=== PATIENT | male | born 1940 | race Caucasian/White ===

== ENCOUNTER 2017-05-03 14:18 | Emergency (ER) | payer OTHER, BC ==
[~2017-05-03] VITALS: Ht 177.8 cm; Wt 74.9 kg
[~2017-05-03 14:18] MED LIST: ATORVASTATIN CA80 MG PO; CELEXA10 MG PO; CIPRO500 MG PO; DOCUSATE SODIU100 MG PO; DONEPEZIL HCL5 MG PO; FLAGYL500 MG PO; GLIPIZIDE ER2.5 MG PO; GLUCOPHAGE1000 MG PO; GLUCOTROL XL2.5 MG PO; HALDOL2 MG PO; HALOPERIDOL2 MG PO; KEFLEX500 MG PO; LIPITOR80 MG PO; LISINOPRIL10 MG PO; LORAZEPAM0.5 MG PO; LORAZEPAM1 MG PO; METFORMIN HCL1000 MG PO; PAROXETINE HCL10 MG PO; RAMIPRIL2.5 MG PO; SENNA8.6 MG PO; SEROQUEL100 MG PO; SEROQUEL12.5 MG PO; TEGRETOL200 MG PO; TRAZODONE HCL100 MG PO; TRAZODONE HCL50 MG PO; TUSSIN100 MG/5 M PO; TYLENOL ARTHRI650 MG PO; TYLENOL REGULA325 MG PO
[2017-05-03 16:03] LABS: HEMATOCRIT 38.8 % (38.0-50.0); MCH 28.8 PG (29.0-34.0); MCHC 31.7 G/DL (30.0-36.0); MCV 90.9 FL (86-99); RBC DIS.WIDTH-CV 14.6 % (11.8-14.6); RBC DIS.WIDTH-SD 48.4 % (39-53); RED BLOOD COUNT 4.27 M/uL (4.00-5.50); WHITE BLOOD COUNT 13.9 K/uL (4.1-10.2)
[2017-05-03 16:15] LABS: CHLORIDE 112 mEq/L (99-109); POTASSIUM 3.7 mEq/L (3.7-5.4); SODIUM 144 mEq/L (136-147)
[2017-05-03 16:17] LABS: GLUCOSE 126 mg/dL (70-99)
[2017-05-03 16:18] LABS: ANION GAP 13 MEQ/L (2-14)
[2017-05-03 16:19] LABS: TOTAL BILIRUBIN 0.3 mg/dL (0.0-1.0)
[2017-05-03 16:21] LABS: ALKALINE PHOSPHATASE 111 IU/L (3-129); GFR ESTIMATE (CALCULATED) 42 mL/min/
[2017-05-03 16:22] LABS: UREA NITROGEN (BUN) 58 mg/dL (9-23)
[2017-05-03 16:30] LABS: ADD MIUA? YES; BILIRUBIN NEGATIVE; BLOOD MODERATE; COLOR STRAW ((YELLOW)); GLUCOSE (STRIP) NEGATIVE; KETONES NEGATIVE; LEUKOCYTES SMALL; NITRITE NEGATIVE; PROTEIN (STRIP) 30; SPECIFIC GRAVITY 1.013 (1.000-1.030); UROBILINOGEN 0.2 MG/DL (0.2-1.0)
[2017-05-03 16:35] LABS: BACTERIA NONE SEEN /HPF; EPITHELIAL CELLS RARE /HPF; MUCUS TRACE /LPF; RED BLOOD CELLS 20-30 /HPF (0-5); UCUL ADDED? YES; WHITE BLOOD CELLS 20-30 /HPF (0-5)
[2017-05-03 16:59] LABS: MEAN PLAT.VOLUME 11.4 uM^3 (9.0-12.4); PLAT.SUFFICIENCY ADEQUATE; PLATELET COUNT 156 K/uL (156-360)
[2017-05-03] MEDS ORDERED: CEFDINIR300 MG PO (18:24)
[2017-05-03 19:47] VITALS: BP 123/74
[2017-05-04] MEDS ORDERED: ERGOCALCIF50000 UNIT PO (20:57)
[2017-05-04] MEDS ORDERED: CYANOCOBALAM1000 MCG PO (20:58)
[2017-05-04] MEDS ORDERED: METFORMIN HCL500 MG PO (20:59)
[2017-05-04] MEDS ORDERED: TYLENOL ARTHRI650 MG PO (21:00)
[2017-05-04] MEDS ORDERED: SEROQUEL12.5 MG PO (21:01)
[2017-05-04] MEDS ORDERED: TRAMADOL HCL50 MG PO (21:02)
[2017-05-04] MEDS ORDERED: DEPAKOTE250 MG PO (21:03)
[2017-05-04] MEDS ORDERED: LOPERAMIDE2 MG PO (21:07)
[2017-05-04] MEDS ORDERED: BIOFREEZE (21:09)
[2017-05-04] MEDS ORDERED: CALMOSEPTINE O120 GM TP (21:11)
== END 2017-05-03 19:47 | disposition home or self-care (01) ==
LOC: EME 14:18
PROVIDERS: Emergency Medicine
DX: S00.83XA Contusion of other part of head, initial encounter (principal); W19.XXXA Unspecified fall, initial encounter; N39.0 Urinary tract infection, site not specified; R33.9 Retention of urine, unspecified; F03.90 Unspecified dementia, unspecified severity, without behavioral disturbance, psychotic disturbance, mood disturbance, and anxiety; N28.9 Disorder of kidney and ureter, unspecified; I10 Essential (primary) hypertension; E78.5 Hyperlipidemia, unspecified; E11.9 Type 2 diabetes mellitus without complications; Z79.84 Long term (current) use of oral hypoglycemic drugs; Z96.642 Presence of left artificial hip joint; Z87.891 Personal history of nicotine dependence
CPT/HCPCS: 70450; 80053; 81003; 85027; 87086; 99281; 99284; J0696; J7030; J7050

== ENCOUNTER 2017-05-04 15:21 | Inpatient (IN) | payer OTHER, BC ==
[~2017-05-04] VITALS: Ht 182.9 cm; Wt 79.4 kg
[~2017-05-04 15:21] MED LIST changes: +CEFDINIR300 MG PO
[2017-05-04 16:13] LABS: HEMATOCRIT 38.3 % (38.0-50.0); MCH 28.9 PG (29.0-34.0); MCHC 32.4 G/DL (30.0-36.0); MCV 89.3 FL (86-99); MEAN PLAT.VOLUME 10.7 uM^3 (9.0-12.4); PLATELET COUNT 190 K/uL (156-360); RBC DIS.WIDTH-CV 14.4 % (11.8-14.6); RBC DIS.WIDTH-SD 46.6 % (39-53); RED BLOOD COUNT 4.29 M/uL (4.00-5.50); WHITE BLOOD COUNT 13.5 K/uL (4.1-10.2)
[2017-05-04 16:23] LABS: CHLORIDE 112 mEq/L (99-109); POTASSIUM 3.5 mEq/L (3.7-5.4); SODIUM 144 mEq/L (136-147)
[2017-05-04 16:24] LABS: GLUCOSE 152 mg/dL (70-99)
[2017-05-04 16:26] LABS: ANION GAP 11 MEQ/L (2-14)
[2017-05-04 16:28] LABS: GFR ESTIMATE (CALCULATED) 42 mL/min/
[2017-05-04 16:29] LABS: UREA NITROGEN (BUN) 52 mg/dL (9-23)
[2017-05-04 16:35] LABS: TROP-I INTERPRETATION NEGATIVE; TROPONIN-I 0.03 ng/mL (0.0-0.30)
[2017-05-04 17:02] LABS: ADD MIUA? YES; BILIRUBIN NEGATIVE; BLOOD MODERATE; COLOR YELLOW ((YELLOW)); GLUCOSE (STRIP) NEGATIVE; KETONES NEGATIVE; LEUKOCYTES NEGATIVE; NITRITE NEGATIVE; PROTEIN (STRIP) NEGATIVE; SPECIFIC GRAVITY 1.015 (1.000-1.030); UROBILINOGEN 0.2 MG/DL (0.2-1.0)
[2017-05-04 17:16] LABS: BACTERIA RARE /HPF; EPITHELIAL CELLS NONE SEEN /HPF; MUCUS TRACE /LPF; RED BLOOD CELLS 30-40 /HPF (0-5); UCUL ADDED? NO; WHITE BLOOD CELLS 0-5 /HPF (0-5); WHITE BLOOD CELLS CLUMP RARE /HPF (0-5)
[2017-05-04] MEDS ORDERED: ERGOCALCIF50000 UNIT PO (20:57)
[2017-05-04] MEDS ORDERED: CYANOCOBALAM1000 MCG PO (20:58)
[2017-05-04] MEDS ORDERED: METFORMIN HCL500 MG PO (20:59)
[2017-05-04] MEDS ORDERED: TYLENOL ARTHRI650 MG PO (21:00)
[2017-05-04] MEDS ORDERED: SEROQUEL12.5 MG PO (21:01)
[2017-05-04] MEDS ORDERED: TRAMADOL HCL50 MG PO (21:02)
[2017-05-04] MEDS ORDERED: DEPAKOTE250 MG PO (21:03)
[2017-05-04] MEDS ORDERED: LOPERAMIDE2 MG PO (21:07)
[2017-05-04] MEDS ORDERED: BIOFREEZE (21:09)
[2017-05-04] MEDS ORDERED: CALMOSEPTINE O120 GM TP (21:11)
[2017-05-04 21:19] LABS: Estimated Average Glucose 143 mg/dL (70-123); HEMOGLOBIN A1c (GLYCOHEMOGLOB) 6.6 % HGB (Below 5.7)
[2017-05-04 22:07] VITALS: BP 126/59
[2017-05-04 23:03] LABS: POINT-OF-CARE METER ID UU14117124
[2017-05-05 03:33] VITALS: BP 106/62
[2017-05-05 06:39] LABS: POINT-OF-CARE METER ID UU14188577
[2017-05-05 07:04] LABS: HEMATOCRIT 29.9 % (38.0-50.0); MCH 29.9 PG (29.0-34.0); MCHC 32.8 G/DL (30.0-36.0); MCV 91.2 FL (86-99); MEAN PLAT.VOLUME 11.4 uM^3 (9.0-12.4); PLATELET COUNT 167 K/uL (156-360); RBC DIS.WIDTH-CV 14.5 % (11.8-14.6); RBC DIS.WIDTH-SD 48.3 % (39-53); WHITE BLOOD COUNT 8.7 K/uL (4.1-10.2)
[2017-05-05 07:07] LABS: ANION GAP 10 MEQ/L (2-14); CHLORIDE 114 MEQ/L (99-109); GFR ESTIMATE (CALCULATED) > 59 mL/min/; POTASSIUM 3.3 MEQ/L (3.7-5.4); SAMPLE HEMOLYSIS CHECK 0; SAMPLE ICTERIC CHECK 0; SAMPLE LIPEMIA CHECK 0; SODIUM 148 MEQ/L (136-147); UREA NITROGEN (BUN) 37 mg/dL (9-23)
[2017-05-05 07:13] LABS: GLUCOSE 100 mg/dL (70-99)
[2017-05-05 07:28] LABS: RED BLOOD COUNT 3.28 M/uL (4.00-5.50)
[2017-05-05 07:39] VITALS: BP 106/76
[2017-05-05 12:00] LABS: POINT-OF-CARE METER ID UU14188577
[2017-05-05 16:55] VITALS: BP 138/63
[2017-05-05 17:04] LABS: POINT-OF-CARE METER ID UU14208753
[2017-05-05 22:12] LABS: POINT-OF-CARE METER ID UU14117124
[2017-05-05 23:17] VITALS: BP 124/59
[2017-05-06 06:49] LABS: HEMATOCRIT 31.8 % (38.0-50.0); MCH 29.6 PG (29.0-34.0); MCHC 32.4 G/DL (30.0-36.0); MCV 91.4 FL (86-99); PLATELET COUNT 147 K/uL (156-360); RBC DIS.WIDTH-CV 14.3 % (11.8-14.6); RBC DIS.WIDTH-SD 47.8 % (39-53); RED BLOOD COUNT 3.48 M/uL (4.00-5.50); WHITE BLOOD COUNT 7.3 K/uL (4.1-10.2)
[2017-05-06 06:52] LABS: POINT-OF-CARE METER ID UU14188577
[2017-05-06 07:39] LABS: ANION GAP 8 MEQ/L (2-14); CHLORIDE 108 MEQ/L (99-109); GFR ESTIMATE (CALCULATED) > 59 mL/min/; GLUCOSE 98 mg/dL (70-99); POTASSIUM 3.8 MEQ/L (3.7-5.4); SAMPLE HEMOLYSIS CHECK 0; SAMPLE ICTERIC CHECK 0; SAMPLE LIPEMIA CHECK 0; UREA NITROGEN (BUN) 26 mg/dL (9-23)
[2017-05-06 07:40] LABS: SODIUM 139 MEQ/L (136-147)
[2017-05-06 07:43] VITALS: BP 129/60
[2017-05-06 11:43] LABS: POINT-OF-CARE METER ID UU14117124
[2017-05-06 16:44] LABS: POINT-OF-CARE METER ID UU14208753
[2017-05-06 17:33] LABS: ADD MIUA? YES; BILIRUBIN NEGATIVE; BLOOD SMALL; COLOR YELLOW ((YELLOW)); GLUCOSE (STRIP) NEGATIVE; KETONES NEGATIVE; LEUKOCYTES SMALL; NITRITE NEGATIVE; PROTEIN (STRIP) NEGATIVE; SPECIFIC GRAVITY 1.008 (1.000-1.030); UROBILINOGEN 0.2 MG/DL (0.2-1.0)
[2017-05-06 17:52] LABS: BACTERIA RARE /HPF; EPITHELIAL CELLS RARE /HPF; MUCUS TRACE /LPF; RED BLOOD CELLS 0-5 /HPF (0-5); UCUL ADDED? YES; WHITE BLOOD CELLS CLUMP RARE /HPF (0-5)
[2017-05-07 00:16] VITALS: BP 162/93
[2017-05-07 07:30] VITALS: BP 140/66
[2017-05-07 09:26] LABS: HEMATOCRIT 32.9 % (38.0-50.0); MCH 30.2 PG (29.0-34.0); MCV 88.7 FL (86-99); MEAN PLAT.VOLUME 10.8 uM^3 (9.0-12.4); PLATELET COUNT 175 K/uL (156-360); RBC DIS.WIDTH-CV 13.9 % (11.8-14.6); RBC DIS.WIDTH-SD 44.7 % (39-53); RED BLOOD COUNT 3.71 M/uL (4.00-5.50)
[2017-05-07 09:50] LABS: ANION GAP 7 MEQ/L (2-14); CHLORIDE 106 MEQ/L (99-109); GFR ESTIMATE (CALCULATED) > 59 mL/min/; GLUCOSE 181 mg/dL (70-99); POTASSIUM 4.1 MEQ/L (3.7-5.4); SAMPLE HEMOLYSIS CHECK 0; SAMPLE ICTERIC CHECK 0; SAMPLE LIPEMIA CHECK 0; SODIUM 140 MEQ/L (136-147); UREA NITROGEN (BUN) 17 mg/dL (9-23)
[2017-05-07 11:32] LABS: POINT-OF-CARE METER ID UU14208753
[2017-05-07 22:03] LABS: POINT-OF-CARE METER ID UU14208753
[2017-05-08 00:13] VITALS: BP 141/93
[2017-05-08 06:53] LABS: POINT-OF-CARE METER ID UU14208753
[2017-05-08 08:06] VITALS: BP 161/96
[2017-05-08 11:34] LABS: POINT-OF-CARE METER ID UU14117124
[2017-05-08 15:41] VITALS: BP 176/77
[2017-05-08 16:50] LABS: POINT-OF-CARE METER ID UU14208753
[2017-05-08 21:26] LABS: POINT-OF-CARE METER ID UU14117124
[2017-05-08 23:50] VITALS: BP 110/57
[2017-05-09 05:57] LABS: POINT-OF-CARE METER ID UU14188577
[2017-05-09 08:16] VITALS: BP 171/73
[2017-05-09 11:33] LABS: POINT-OF-CARE METER ID UU14188577
[2017-05-09 15:27] VITALS: BP 141/63
[2017-05-09 16:31] LABS: POINT-OF-CARE METER ID UU14188577
[2017-05-09 21:24] LABS: POINT-OF-CARE METER ID UU14188577
[2017-05-09 23:04] VITALS: BP 181/79
[2017-05-10 06:21] LABS: POINT-OF-CARE METER ID UU14188577
[2017-05-10 08:00] VITALS: BP 122/77
[2017-05-10 11:24] LABS: POINT-OF-CARE METER ID UU14188577
[2017-05-10 16:38] VITALS: BP 171/71
[2017-05-10 17:11] LABS: POINT-OF-CARE METER ID UU14188577
[2017-05-10 21:10] LABS: POINT-OF-CARE METER ID UU14117124
[2017-05-10 23:13] VITALS: BP 171/88
[2017-05-11 08:04] VITALS: BP 137/63
[2017-05-11 15:08] VITALS: BP 142/62
[2017-05-11 16:06] LABS: POINT-OF-CARE METER ID UU14117124
[2017-05-12 00:03] VITALS: BP 147/76
[2017-05-12 06:18] LABS: POINT-OF-CARE METER ID UU14188577
[2017-05-12 08:00] VITALS: BP 147/70
[2017-05-12 16:33] VITALS: BP 135/62
[2017-05-12 17:25] LABS: POINT-OF-CARE METER ID UU14117124
[2017-05-12 23:33] VITALS: BP 184/80
[2017-05-13 08:02] VITALS: BP 119/67
[2017-05-13 16:00] VITALS: BP 145/98
[2017-05-13 21:27] LABS: POINT-OF-CARE METER ID UU14208753
[2017-05-13 23:33] VITALS: BP 114/54
[2017-05-14 06:41] LABS: POINT-OF-CARE METER ID UU14117124
[2017-05-14 07:51] VITALS: BP 172/93
[2017-05-14 11:57] LABS: POINT-OF-CARE METER ID UU14208753
[2017-05-14 15:28] VITALS: BP 134/64
[2017-05-14 16:32] LABS: POINT-OF-CARE METER ID UU14208753
[2017-05-14 21:14] LABS: POINT-OF-CARE METER ID UU14208753
[2017-05-14 23:27] VITALS: BP 166/71
[2017-05-15 06:17] LABS: POINT-OF-CARE METER ID UU14117124
[2017-05-15 07:39] VITALS: BP 170/91
[2017-05-15] MEDS ORDERED: TAMSULOSIN HCL0.4 MG PO (11:01)
[2017-05-15] MEDS ORDERED: DONEPEZIL HCL5 MG PO (11:01)
[2017-05-15] MEDS ORDERED: HALDOL2 MG PO (11:07)
[2017-05-15 11:42] LABS: POINT-OF-CARE METER ID UU14117124
[2017-05-15] MEDS ORDERED: LEVSIN0.125 MG PO (14:19)
[2017-05-15] MEDS ORDERED: MORPHINE CON20 MG/M1 PO (14:19)
[2017-05-15] MEDS ORDERED: ATIVAN INTE2 MG/1 ML PO (14:19)
[2017-05-15 15:01] VITALS: BP 145/68
== END 2017-05-15 16:50 | disposition hospice, home (50) | DRG 699 ==
LOC: EME 15:21 → EDOF 19:02 → ENRESERV 19:04 → EDOF 20:51 → 3EAST 20:51 → ENRESERV 20:55 → 3EAST 21:59
PROVIDERS: Emergency Medicine; Hospitalist; Physician Assistant
DX: N31.2 Flaccid neuropathic bladder, not elsewhere classified (principal); R33.9 Retention of urine, unspecified; N39.0 Urinary tract infection, site not specified; N17.9 Acute kidney failure, unspecified; E86.0 Dehydration; F05 Delirium due to known physiological condition; G30.9 Alzheimer's disease, unspecified; F02.81 Dementia in other diseases classified elsewhere, unspecified severity, with behavioral disturbance; R47.01 Aphasia; D64.9 Anemia, unspecified; E11.9 Type 2 diabetes mellitus without complications; E55.9 Vitamin D deficiency, unspecified; E78.5 Hyperlipidemia, unspecified; F41.9 Anxiety disorder, unspecified; I10 Essential (primary) hypertension; R29.6 Repeated falls; F31.9 Bipolar disorder, unspecified; Z66 Do not resuscitate; Z96.643 Presence of artificial hip joint, bilateral; Z95.0 Presence of cardiac pacemaker; Z87.891 Personal history of nicotine dependence; Z79.84 Long term (current) use of oral hypoglycemic drugs
CPT/HCPCS: 36415; 70450; 71010; 80048; 80053; 80164; 81003; 82306; 82607; 82948; 83036; 84443; 84484; 85027; 87040; 87086; 93005; 99281; 99284; 99285; J0696; J1630; J1644; J1815; J2060; J7030; J7050